=== PATIENT | male | born 1975 | race Caucasian/White ===

== ENCOUNTER 2022-12-09 10:24 | Emergency (ER) | payer BC ==
[~2022-12-09] VITALS: Ht 172.7 cm; Wt 126.1 kg
[2022-12-09] MEDS ORDERED: TRAMADOL HCL50 MG PO (12:38)
== END 2022-12-09 12:49 | disposition home or self-care (01) ==
LOC: ED 10:24
DX: M25.512 Pain in left shoulder (principal)